=== PATIENT | female | born 1995 | race Caucasian/White ===

== ENCOUNTER 2016-11-20 02:09 | Emergency (ER) | payer OTHER ==
[~2016-11-20] VITALS: Ht 172.7 cm; Wt 72.6 kg
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
--- NOTE | 2016-11-20 02:52 | NUR ---
XRAY AT BEDSIDE
[2016-11-20] MEDS ORDERED: CEPHALEXIN MONOHYDRATE 500 MG CAPSULE PO ONE (03:12)
[2016-11-20] MEDS ORDERED: TDAP [DIPH/PERTUSSIS/TET] 0.5 ML VIAL IM ONE (03:13)
[2016-11-20] MEDS ORDERED: HYDROCODONE/APAP 10/325MG 1 EA TABLET ONE (03:13)
[2016-11-20] MEDS: TDAP [DIPH/PERTUSSIS/TET] 0.5 ML VIAL IM ONE (03:22)
[2016-11-20] MEDS: CEPHALEXIN MONOHYDRATE 500 MG CAPSULE PO ONE (03:23)
[2016-11-20] MEDS: HYDROCODONE/APAP 10/325MG 1 EA TABLET PO ONE (03:23)
--- NOTE | 2016-11-20 04:09 | NUR ---
CALLED [facility]. LEFT FOR REQUEST/ FOLLOW UP PENDING LEFT HAND RESULTS. WAITING FOR CALL BACK
--- NOTE | 2016-11-20 04:31 | NUR ---
CALLED [facility], WILL FAX OVER RESULTS. WAITING FOR FAX
--- NOTE | 2016-11-20 04:33 | NUR ---
RECEIVED FAX FROM [facility] FOR LEFT HAND XRAY RESULTS
--- NOTE | 2016-11-20 04:52 | NUR ---
Patient discharged to home in stable condition. Written and verbal after care instructions given. Patient verbalizes understanding of instruction. ambulatory with a steady gait. instructed not to drive. pt verbalize understanding. pt accompanied by boyfriend.
[2016-11-20 04:53] VITALS: BP 124/70
== END 2016-11-20 04:53 | disposition home or self-care (01) ==
LOC: ER 02:13
DX: S62.605A Fracture of unspecified phalanx of left ring finger, initial encounter for closed fracture (principal); S60.512A Abrasion of left hand, initial encounter; R21 Rash and other nonspecific skin eruption; Z90.49 Acquired absence of other specified parts of digestive tract; Z23 Encounter for immunization; V29.3XXA Motorcycle rider (driver) (passenger) injured in unspecified nontraffic accident, initial encounter; Y93.89 Activity, other specified; Y92.488 Other paved roadways as the place of occurrence of the external cause; Y99.8 Other external cause status
CPT/HCPCS: 73130-TC; 90715; A4606; Z7610